=== PATIENT | male | born 1970 | race Caucasian/White ===

== ENCOUNTER 2018-06-24 11:01 | Emergency (ER) | payer BC ==
[~2018-06-24] VITALS: Ht 185.4 cm; Wt 113.4 kg
[2018-06-24] MEDS ORDERED: PANTOPRAZOLE 40 MG/10 ML VIAL IV ONE ×2 (11:33→11:45)
[2018-06-24] MEDS ORDERED: SODIUM CHLORIDE 0.9% 1,000 ML IV ONE (11:45)
[2018-06-24 11:51] LABS: Basophils # (auto) 0 uL; Basophils % (auto) 0.6 % (0.0-2.0); Eosinophils # (auto) 0.1 uL; Eosinophils % (auto) 1.9 % (0.0-7.0); Hematocrit 47.6 % (41.0-53.0); Lymphocytes # (auto) 0.9 uL; Lymphocytes % (auto) 16.5 % (10.0-50.0); Mean Corpuscular Hgb Conc. 33.7 g/dL (32.0-36.0); Monocytes # (auto) 0.5 uL; Monocytes % (auto) 8.3 % (0.0-12.0); Neutrophils % (auto) 72.7 % (37.0-80.0); Nucleated Red Blood Cells % 0.1 %; Platelet Count (auto) 195 10^3/uL (140-450); Red Blood Cells 5.17 10^6/uL (4.5-5.90); Red Cell Distribution Width 13.1 % (11.8-14.3); White Blood Cell 5.4 10^3/uL (4.4-10.8)
[2018-06-24] MEDS ORDERED: MORPHINE SULF INJ 2 MG/ML SYRINGE 1ML IV ONE (12:00)
[2018-06-24] MEDS ORDERED: ONDANSETRON HCL 4 MG/2 ML VIAL IV ONE (12:00)
[2018-06-24 12:07] LABS: Albumin 4.1 g/dL (3.4-5.0); BUN/Creatinine Ratio 8.8; Calcium 10.3 mg/dL (8.5-10.1); Potassium 3.7 mmol/L (3.5-5.1)
[2018-06-24 12:10] LABS: Bilirubin, Total 0.5 mg/dL (0.2-1.0); Total Protein 7.7 g/dL (6.4-8.2)
[2018-06-24] MEDS ORDERED: KETOROLAC TROMETH 30 MG/ML 1ML VIAL IV ONE (13:15)
[2018-06-24] MEDS ORDERED: TAMSULOSIN HYDROCHLORIDE 0.4 MG CAP PO ONE (13:15)
[2018-06-24 13:30] VITALS: BP 111/67
[2018-06-24 13:33] LABS: Urine WBC None Seen /hpf (0 - 3)
[2018-06-24 13:44] LABS: Urine Bacteria NONE SEEN /hpf (None Seen); Urine Blood 2+ /uL (Negative); Urine Mucus FEW (None Seen); Urine Specific Gravity 1.015 (1.001-1.035)
[2018-06-24] MEDS ORDERED: HYDROcodone-ACET 10/325MG TAB PO ONE (15:00)
== END 2018-06-24 14:52 | disposition home or self-care (01) ==
LOC: ER 11:05
DX: N20.0 Calculus of kidney (principal); F17.210 Nicotine dependence, cigarettes, uncomplicated
CPT/HCPCS: 36415; 74176; 80053; 81001; 82150; 83690; 85025; 94761; 96374; 96375; 99284; C9113; J1885; J2270; J2405

== ENCOUNTER 2020-06-09 10:05 | Emergency (ER) | payer BC ==
[~2020-06-09] VITALS: Ht 185.4 cm; Wt 108.4 kg
[2020-06-09 10:06] VITALS: BP 132/88
== END 2020-06-09 11:04 | disposition home or self-care (01) ==
LOC: ER 10:05
DX: M23.92 Unspecified internal derangement of left knee (principal); F17.210 Nicotine dependence, cigarettes, uncomplicated
CPT/HCPCS: 73562

== ENCOUNTER 2021-01-24 05:27 | Emergency (ER) | payer BC ==
[~2021-01-24] VITALS: Ht 185.4 cm; Wt 122.5 kg
[2021-01-24 07:04] VITALS: BP 111/79
[2021-01-24] MEDS ORDERED: KETOROLAC TROMETH 60MG/2ML VIAL IM ONE (07:15)
== END 2021-01-24 07:36 | disposition home or self-care (01) ==
LOC: ER 05:27
DX: S63.502A Unspecified sprain of left wrist, initial encounter (principal); F17.210 Nicotine dependence, cigarettes, uncomplicated; W54.0XXA Bitten by dog, initial encounter; Y93.89 Activity, other specified; Y92.89 Other specified places as the place of occurrence of the external cause; Y99.8 Other external cause status
CPT/HCPCS: 73110; 96372; 99283; J1885

== ENCOUNTER 2023-04-29 08:16 | Emergency (ER) | payer BC ==
[~2023-04-29] VITALS: Ht 185.4 cm; Wt 119.8 kg
[2023-04-29 08:21] VITALS: BP 109/85
[2023-04-29 09:22] LABS: Urine Bacteria NONE SEEN /hpf (None Seen); Urine Blood Negative /uL (Negative); Urine Clarity Clear (Clear); Urine Color Yellow (Yellow); Urine Hyaline Cast FEW /lpf (0 - 2); Urine Mucus MODERATE (None Seen); Urine Protein, UAD TRACE (Negative); Urine Specific Gravity 1.034 (1.001-1.035); Urine Urobilinogen Normal (Negative); Urine WBC 1 /hpf (0 - 3)
[2023-04-29] MEDS: ONDANSETRON ODT 4 MG TAB PO ONE (09:23)
[2023-04-29 09:25] VITALS: PULSE 92; RESP 16; O2SAT 95; O2SAT 96
[2023-04-29 09:26] LABS: Alanine Aminotransferase 25 U/L (7-40); Albumin 4.2 g/dL (3.2-4.8); Alkaline Phosphatase 70 U/L (46-116); Anion Gap 5 (5-15); Aspartate Aminotransferase 18 U/L (13-40); BUN/Creatinine Ratio 9.2 (10.0-20.0); Bilirubin, Total 0.8 mg/dL (0.2-1.0); Blood Urea Nitrogen 10 mg/dL (9-23); Calcium 8.5 mg/dL (8.7-10.4); Carbon Dioxide 23 mmol/L (20-30); Chloride 109 mmol/L (98-107); Glucose 103 mg/dL (74-106); Potassium 4.2 mmol/L (3.5-5.1); Sodium 137 mmol/L (136-145)
[2023-04-29 10:44] LABS: Basophils # (auto) 0 10 ^3/uL (0-0.2); Basophils % (auto) 0.5 % (0.0-2.0); Eosinophils # (auto) 0.1 10 ^3/uL (0-0.8); Eosinophils % (auto) 1.4 % (0.0-7.0); Hematocrit 47.9 % (41.0-53.0); Lymphocytes # (auto) 1.1 10 ^3/uL (0.4-5.4); Lymphocytes % (auto) 28.5 % (10.0-50.0); Mean Corpuscular Hemoglobin 30.6 pg (28.0-32.0); Mean Corpuscular Hgb Conc. 33.4 g/dL (32.0-36.0); Mean Corpuscular Volume 91.8 fL (80.0-100.0); Monocytes # (auto) 0.3 10 ^3/uL (0-1.3); Monocytes % (auto) 8.2 % (0.0-12.0); Neutrophils # (auto) 2.3 10 ^3/uL (1.6-8.6); Neutrophils % (auto) 61.4 % (37.0-80.0); Nucleated Red Blood Cells % 0.3 %; Red Blood Cells 5.22 10^6/uL (4.5-5.90); Red Cell Distribution Width 13.1 % (11.8-14.3); White Blood Cell 3.8 10^3/uL (4.4-10.8)
[2023-04-29] MEDS ORDERED: ZOFR4T PO (11:21)
== END 2023-04-29 11:42 | disposition home or self-care (01) ==
LOC: ER 08:16
DX: K52.9 Noninfective gastroenteritis and colitis, unspecified (principal); F17.210 Nicotine dependence, cigarettes, uncomplicated; Z98.890 Other specified postprocedural states
CPT/HCPCS: 36415; 74176; 80053; 81001; 85025; 99284; Q0162

== ENCOUNTER 2023-10-02 19:53 | Emergency (ER) | payer BC ==
[~2023-10-02] VITALS: Ht 185.4 cm; Wt 118.6 kg
[~2023-10-02 19:53] MED LIST: ZOFR4T PO
[2023-10-02 20:12] VITALS: BP 108/82; RESP 18; O2SAT 92
[2023-10-02 20:13] VITALS: PULSE 103
[2023-10-02] MEDS ORDERED: TETANUS-DIPTH-ACEL PERTUSSIS 0.5ML SYR Tdap IM ONE (20:45)
[2023-10-02] MEDS ORDERED: KETOROLAC TROMETH 60MG/2ML VIAL IM ONE (20:45)
[2023-10-02] MEDS ORDERED: HYDROcodone-ACET 10/325MG TAB PO ONE (20:45)
[2023-10-02 20:54] LABS: Basophils # (auto) 0 10 ^3/uL (0-0.2); Basophils % (auto) 0.6 % (0.0-2.0); Eosinophils # (auto) 0.1 10 ^3/uL (0-0.8); Eosinophils % (auto) 2.2 % (0.0-7.0); Hematocrit 43.1 % (41.0-53.0); Hemoglobin 14.7 g/dL (13.5-17.5); Lymphocytes # (auto) 1.4 10 ^3/uL (0.4-5.4); Lymphocytes % (auto) 20.7 % (10.0-50.0); Mean Corpuscular Hemoglobin 31.5 pg (28.0-32.0); Mean Corpuscular Hgb Conc. 34.1 g/dL (32.0-36.0); Mean Corpuscular Volume 92.4 fL (80.0-100.0); Monocytes # (auto) 0.5 10 ^3/uL (0-1.3); Monocytes % (auto) 7.4 % (0.0-12.0); Neutrophils # (auto) 4.5 10 ^3/uL (1.6-8.6); Neutrophils % (auto) 69.1 % (37.0-80.0); Nucleated Red Blood Cells % 0.1 %; Red Blood Cells 4.67 10^6/uL (4.5-5.90); Red Cell Distribution Width 13.2 % (11.8-14.3); White Blood Cell 6.5 10^3/uL (4.4-10.8)
[2023-10-02 21:23] LABS: Alanine Aminotransferase 24 U/L (7-40); Albumin 4.2 g/dL (3.2-4.8); Alkaline Phosphatase 69 U/L (46-116); Anion Gap 6 (5-15); Aspartate Aminotransferase 13 U/L (13-40); Bilirubin, Total 0.8 mg/dL (0.2-1.0); Blood Urea Nitrogen 15 mg/dL (9-23); Calcium 9.4 mg/dL (8.7-10.4); Carbon Dioxide 24 mmol/L (20-30); Chloride 109 mmol/L (98-107); Glucose 102 mg/dL (74-106); Sodium 139 mmol/L (136-145); Total Protein 6.6 g/dL (5.7-8.2)
[2023-10-02] MEDS ORDERED: NEOMYCIN-BACITRACIN-POLYM UNITDOSE PKG TOP OINT TOP ONE (21:45)
[2023-10-02] MEDS ORDERED: HYDR-4902 PO (22:38)
[2023-10-02] MEDS ORDERED: AUG875T PO (22:38)
[2023-10-02] MEDS ORDERED: IBUP-1455 PO (22:38)
[2023-10-02] MEDS ORDERED: BACIOIN15 TOP (22:38)
[2023-10-02] MEDS ORDERED: AMOXICILLIN/CLAVUL 875 MG TAB PO ONE (22:45)
== END 2023-10-02 22:36 | disposition home or self-care (01) ==
LOC: ER 19:53
DX: S00.83XA Contusion of other part of head, initial encounter (principal); S20.211A Contusion of right front wall of thorax, initial encounter; R60.0 Localized edema; F17.210 Nicotine dependence, cigarettes, uncomplicated; W54.0XXA Bitten by dog, initial encounter; Y93.89 Activity, other specified; Y92.89 Other specified places as the place of occurrence of the external cause; Y99.8 Other external cause status
CPT/HCPCS: 36415; 70450; 71101; 73130; 80053; 84484; 85025; 93005

== ENCOUNTER 2023-11-03 11:00 | Emergency (ER) | payer BC ==
[~2023-11-03] VITALS: Ht 185.4 cm; Wt 125.0 kg
[~2023-11-03 11:00] MED LIST changes: +AUG875T PO; +BACIOIN15 TOP; +HYDR-4902 PO; +IBUP-1455 PO
[2023-11-03 11:40] LABS: Basophils # (auto) 0 10 ^3/uL (0-0.2); Eosinophils # (auto) 0 10 ^3/uL (0-0.8); Eosinophils % (auto) 0.1 % (0.0-7.0); Hematocrit 44.4 % (41.0-53.0); Hemoglobin 15.2 g/dL (13.5-17.5); Lymphocytes # (auto) 0.9 10 ^3/uL (0.4-5.4); Lymphocytes % (auto) 15.3 % (10.0-50.0); Mean Corpuscular Hemoglobin 31.7 pg (28.0-32.0); Mean Corpuscular Hgb Conc. 34.1 g/dL (32.0-36.0); Mean Corpuscular Volume 92.8 fL (80.0-100.0); Monocytes # (auto) 0.4 10 ^3/uL (0-1.3); Monocytes % (auto) 6.9 % (0.0-12.0); Neutrophils # (auto) 4.7 10 ^3/uL (1.6-8.6); Neutrophils % (auto) 77.7 % (37.0-80.0); Platelet Count (auto) 175 10^3/uL (140-450); Red Blood Cells 4.79 10^6/uL (4.5-5.90); White Blood Cell 6.1 10^3/uL (4.4-10.8)
[2023-11-03] MEDS: ASPirin 81 mg TAB PO ONE (11:41)
[2023-11-03 11:46] VITALS: TEMP 98.7
[2023-11-03 11:56] LABS: Alanine Aminotransferase 28 U/L (7-40); Albumin 4.2 g/dL (3.2-4.8); Alkaline Phosphatase 71 U/L (46-116); Anion Gap 6 (5-15); Aspartate Aminotransferase 24 U/L (13-40); BUN/Creatinine Ratio 6.7 (10.0-20.0); Blood Urea Nitrogen 7 mg/dL (9-23); Calcium 9.2 mg/dL (8.7-10.4); Carbon Dioxide 26 mmol/L (20-30); Chloride 104 mmol/L (98-107); Glucose 114 mg/dL (74-106); Magnesium 1.8 mg/dL (1.6-2.6); Potassium 3.8 mmol/L (3.5-5.1); Sodium 136 mmol/L (136-145)
[2023-11-03 11:57] LABS: Bilirubin, Total 0.6 mg/dL (0.2-1.0); Total Protein 6.9 g/dL (5.7-8.2)
[2023-11-03 12:00] VITALS: PULSE 117; RESP 18; O2SAT 95
[2023-11-03] MEDS: SODIUM CHLORIDE 0.9% 1,000 ML IV ONE (12:02)
[2023-11-03] MEDS: MORPHINE SULFATE 4 MG/ML SYR/VIAL IV ONE (12:43)
[2023-11-03] MEDS: LORazepam 2MG/ML-1ML VIAL IV ONE (12:43)
[2023-11-03] MEDS: ONDANSETRON HCL 4 MG/2 ML VIAL IV ONE (12:44)
[2023-11-03] MEDS: NITROGLYCERIN 50MG/250ML 250 ML IV ONE (12:50)
[2023-11-03] MEDS: HEPARIN 1,000 UNITS/ml 1ML VIAL IV ONE (12:50)
[2023-11-03 12:54] LABS: Partial Thromboplastin Time 28.2 SEC (24.5-34.5); Prothrombin Time 10.6 sec (9.3-11.8)
[2023-11-03] MEDS: HEPARIN DRIP/D5W 100UNITS/ML 250 ML IV SCH (14:09)
[2023-11-03] MEDS ORDERED: MORPHINE SULFATE INJ 2 MG/ml SYRG IV PRN ×2 (14:15→15:15)
[2023-11-03] MEDS ORDERED: ONDANSETRON HCL 4 MG/2 ML VIAL IV PRN (14:15)
[2023-11-03] MEDS ORDERED: hydrALAZINE HCL 20 MG/ML VL IV PRN (14:15)
[2023-11-03] MEDS ORDERED: DOCUSATE SOD 100 MG CAP PO PRN (14:15)
[2023-11-03] MEDS ORDERED: HYDROcodone-ACET 5/325MG TAB PO PRN (14:15)
[2023-11-03] MEDS ORDERED: ACETAMINOPHEN 325 MG TAB PO PRN (14:15)
[2023-11-03 14:40] LABS: Triglycerides 72 mg/dL (< 150)
[2023-11-03 14:41] LABS: LDL Cholesterol 88 mg/dL (< 100)
[2023-11-03 14:42] LABS: Cholesterol 143 mg/dL (< 200); HDL Cholesterol 39 mg/dL (40-59)
[2023-11-03] MEDS ORDERED: NITROGLYCERIN 0.4 MG SL TAB SL PRN (15:15)
[2023-11-03 15:17] LABS: Amphetamine Screen, Urine Pos (NEGATIVE); Barbiturate Scree,Urine Neg (NEGATIVE); Benzodiazephine Screen, Urine Neg (NEGATIVE)
[2023-11-03 15:18] LABS: Cocaine Screen, Urine Neg (NEGATIVE); Opiate Scree,Urine Neg (NEGATIVE); Phencyclidine Screen, Urine Neg (NEGATIVE)
[2023-11-03 15:19] LABS: Cannabinoid Screen, Urine Pos (NEGATIVE)
[2023-11-03] MEDS: SODIUM CHLORIDE 0.9% 1,000 ML IV SCH (17:21)
[2023-11-03] MEDS ORDERED: LORazepam 2MG/ML-1ML VIAL IV PRN (17:30)
[2023-11-03 18:00] VITALS: BP 107/64; PULSE 98; RESP 12; O2SAT 95
[2023-11-03] MEDS ORDERED: ATORVASTATIN 20 MG TAB PO SCH (22:00)
[2023-11-04] MEDS ORDERED: FAMOTIDINE (10MG/ML) 2ML VL IV SCH (10:00)
== END 2023-11-03 19:39 | disposition left against medical advice (07) ==
LOC: ER 11:01 → DOU IN ICU 15:05 → UNDOADMIN 15:05 → ER 15:05 → OVERFLOW 20:31 → DOU IN ICU 20:31
DX: I21.4 Non-ST elevation (NSTEMI) myocardial infarction (principal); F15.10 Other stimulant abuse, uncomplicated; F17.210 Nicotine dependence, cigarettes, uncomplicated; Z79.899 Other long term (current) drug therapy
CPT/HCPCS: 36415; 71045; 80053; 80061; 80307; 82962; 83036; 83735; 83880; 84443; 84484; 85025; 85610; 85730; 93005; 93306; 96361; 96374; 96375; 99291; J1644; J2060; J2270; J2405; J7030; 96365

== ENCOUNTER 2023-11-09 09:09 | Inpatient (IN) | payer BC ==
[~2023-11-09] VITALS: Ht 185.4 cm; Wt 109.1 kg
[2023-11-09 09:43] LABS: Basophils # (auto) 0 10 ^3/uL (0-0.2); Eosinophils # (auto) 0.1 10 ^3/uL (0-0.8); Eosinophils % (auto) 2.6 % (0.0-7.0); Hematocrit 43.9 % (41.0-53.0); Hemoglobin 14.7 g/dL (13.5-17.5); Lymphocytes # (auto) 1.1 10 ^3/uL (0.4-5.4); Lymphocytes % (auto) 28.9 % (10.0-50.0); Mean Corpuscular Hemoglobin 31.2 pg (28.0-32.0); Mean Corpuscular Hgb Conc. 33.6 g/dL (32.0-36.0); Mean Corpuscular Volume 92.9 fL (80.0-100.0); Monocytes # (auto) 0.4 10 ^3/uL (0-1.3); Monocytes % (auto) 9.4 % (0.0-12.0); Neutrophils # (auto) 2.3 10 ^3/uL (1.6-8.6); Neutrophils % (auto) 58.1 % (37.0-80.0); Nucleated Red Blood Cells % 0.1 %; Platelet Count (auto) 246 10^3/uL (140-450); Red Blood Cells 4.72 10^6/uL (4.5-5.90); Red Cell Distribution Width 13.3 % (11.8-14.3); White Blood Cell 3.9 10^3/uL (4.4-10.8)
[2023-11-09] MEDS: ASPirin 81 mg TAB PO ONE (09:48)
[2023-11-09 09:49] VITALS: PULSE 98; RESP 18; O2SAT 95
[2023-11-09 10:00] LABS: Urine Bacteria None Seen /hpf (None Seen)
[2023-11-09 10:12] LABS: Alanine Aminotransferase 35 U/L (7-40); Alkaline Phosphatase 75 U/L (46-116); Anion Gap 2 (5-15); Aspartate Aminotransferase 34 U/L (13-40); BUN/Creatinine Ratio 7.1 (10.0-20.0); Bilirubin, Total 0.7 mg/dL (0.2-1.0); Blood Urea Nitrogen 8 mg/dL (9-23); Calcium 9.7 mg/dL (8.7-10.4); Carbon Dioxide 30 mmol/L (20-30); Chloride 108 mmol/L (98-107); Glucose 113 mg/dL (74-106); Sodium 140 mmol/L (136-145); Total Protein 6.5 g/dL (5.7-8.2)
[2023-11-09 10:15] LABS: INR 0.99 (0.9-1.15); Partial Thromboplastin Time 27.3 SEC (24.5-34.5); Prothrombin Time 10.5 sec (9.3-11.8)
[2023-11-09 10:22] LABS: Urine Blood Negative /uL (Negative); Urine Clarity Clear (Clear); Urine Color Yellow (Yellow); Urine Hyaline Cast FEW /lpf (0 - 2); Urine Mucus FEW (None Seen); Urine Protein, UAD TRACE (Negative); Urine Specific Gravity 1.022 (1.001-1.035); Urine Urobilinogen Normal (Negative); Urine WBC 1 /hpf (0 - 3)
[2023-11-09 10:24] LABS: Amphetamine Screen, Urine Pos (NEGATIVE)
[2023-11-09 10:25] LABS: Barbiturate Scree,Urine Neg (NEGATIVE); Benzodiazephine Screen, Urine Neg (NEGATIVE); Cannabinoid Screen, Urine Pos (NEGATIVE); Cocaine Screen, Urine Neg (NEGATIVE); Opiate Scree,Urine Neg (NEGATIVE); Phencyclidine Screen, Urine Neg (NEGATIVE)
[2023-11-09] MEDS ORDERED: ONDANSETRON HCL 4 MG/2 ML VIAL IV PRN (13:00)
[2023-11-09] MEDS ORDERED: ACETAMINOPHEN 325 MG TAB PO PRN (13:00)
[2023-11-09] MEDS ORDERED: NITROGLYCERIN 0.4 MG SL TAB SL PRN ×2 (13:00)
[2023-11-09] MEDS: LORazepam 0.5 MG TAB PO PRN (13:27)
[2023-11-09 15:52] LABS: Triglycerides 75 mg/dL (< 150)
[2023-11-09 15:53] LABS: LDL Cholesterol 72 mg/dL (< 100)
[2023-11-09 15:54] LABS: Cholesterol 133 mg/dL (< 200); HDL Cholesterol 44 mg/dL (40-59)
[2023-11-09 19:29] VITALS: PULSE 89; RESP 20; O2SAT 100
[2023-11-09 21:15] VITALS: BP 90/56; PULSE 80; RESP 16; TEMP 98.7; O2SAT 98
[2023-11-09 21:56] VITALS: PULSE 78; RESP 18; O2SAT 93
[2023-11-09] MEDS: ATORVASTATIN 20 MG TAB PO SCH (21:57)
[2023-11-09 22:00] VITALS: BP 96/55; PULSE 81; RESP 16; TEMP 98.6; O2SAT 98
[2023-11-09] MEDS ORDERED: METOPROLOL TARTRATE 25 MG TAB PO SCH (22:00)
[2023-11-10] VITALS (8 sets, daily range): BP systolic 90–147; BP diastolic 59–113; PULSE 81–92; RESP 16–17; TEMP 97.5–98.7; O2SAT 93–98
[2023-11-10 07:52] LABS: Basophils # (auto) 0 10 ^3/uL (0-0.2); Basophils % (auto) 1.2 % (0.0-2.0); Eosinophils # (auto) 0.1 10 ^3/uL (0-0.8); Eosinophils % (auto) 2.7 % (0.0-7.0); Hemoglobin 14.1 g/dL (13.5-17.5); Lymphocytes # (auto) 1.6 10 ^3/uL (0.4-5.4); Lymphocytes % (auto) 38.1 % (10.0-50.0); Mean Corpuscular Hgb Conc. 33.6 g/dL (32.0-36.0); Mean Corpuscular Volume 92.3 fL (80.0-100.0); Monocytes # (auto) 0.4 10 ^3/uL (0-1.3); Monocytes % (auto) 10.1 % (0.0-12.0); Neutrophils % (auto) 47.9 % (37.0-80.0); Nucleated Red Blood Cells % 0.1 %; Platelet Count (auto) 236 10^3/uL (140-450); Red Blood Cells 4.55 10^6/uL (4.5-5.90); Red Cell Distribution Width 13.4 % (11.8-14.3); White Blood Cell 4.2 10^3/uL (4.4-10.8)
[2023-11-10 08:02] LABS: Alanine Aminotransferase 33 U/L (7-40); Albumin 3.7 g/dL (3.2-4.8); Alkaline Phosphatase 67 U/L (46-116); Anion Gap 4 (5-15); Aspartate Aminotransferase 23 U/L (13-40); Bilirubin, Total 0.7 mg/dL (0.2-1.0); Blood Urea Nitrogen 11 mg/dL (9-23); Calcium 9.3 mg/dL (8.7-10.4); Carbon Dioxide 26 mmol/L (20-30); Chloride 109 mmol/L (98-107); Glucose 100 mg/dL (74-106); Potassium 4.1 mmol/L (3.5-5.1); Sodium 139 mmol/L (136-145); Total Protein 6.1 g/dL (5.7-8.2)
[2023-11-10] MEDS: ASPirin 81 mg TAB PO SCH (08:33)
[2023-11-10] MEDS: DOCUSATE SOD 100 MG CAP PO SCH (08:40)
[2023-11-10] MEDS: LACTATED RINGER'S 1,000 ML IV SCH (11:48)
== END 2023-11-10 18:20 | disposition home or self-care (01) | DRG 282 ==
LOC: ER 09:09 → TELE 12:54 → TELE-WESTW 21:15
PROVIDERS: ADMIT Internal Medicine; ATTEND Internal Medicine
DX: I20.1 Angina pectoris with documented spasm (principal); I21.A1 Myocardial infarction type 2; E66.9 Obesity, unspecified; F41.9 Anxiety disorder, unspecified; F15.10 Other stimulant abuse, uncomplicated; T43.625A Adverse effect of amphetamines, initial encounter; F17.210 Nicotine dependence, cigarettes, uncomplicated; Z96.652 Presence of left artificial knee joint; Z87.442 Personal history of urinary calculi; Z79.899 Other long term (current) drug therapy; Z68.31 Body mass index [BMI] 31.0-31.9, adult; Y92.89 Other specified places as the place of occurrence of the external cause
CPT/HCPCS: 36415; 71045; 80053; 80061; 80307; 81001; 83735; 84443; 84484; 85025; 85610; 85730; 93005; 99291; G0378

== ENCOUNTER 2024-12-18 05:45 | Emergency (ER) | payer BC ==
[~2024-12-18] VITALS: Ht 182.9 cm; Wt 100.0 kg
[~2024-12-18 05:45] MED LIST changes: -AUG875T PO; -BACIOIN15 TOP; -HYDR-4902 PO; -ZOFR4T PO
--- NOTE | 2024-12-18 06:35 | ED.PDOC ---
Musculoskeletal HPI Comments 54-year-old male with a history of polysubstance use presented to the ER with a chief complaint of right hand pain dog bite. Patient has multiple dogs with a mix breed and reports that 1 of his dog was attacking the other, he got in between and the dog bit his hand. Patient reports numbness and tingling over the right hand, severe pain denies fever, chills, nausea, vomiting at this time. He says that his dogs were vaccinated, does not remember when his last tetanus shot was. Patient seen and examined in [facility]. Right hand dorsum has a wound 3 x 1 cm, erythematous without purulent drainage. Chief Complaint: Animal Bite Time Seen by MD: 06:17 Primary Care Provider: NONE Reviewed Notes: Nurses Notes Allergies: Coded Allergies: NO KNOWN ALLERGIES (Unverified , 06/24/18) Home Meds Active Scripts Ibuprofen Micronized (Ibuprofen) 800 Mg Tab, 800 MG PO Q8HP PRN, #20 TAB Prov:TIKI MENDEZ Kiara PAC 10/02/23 Information Source: Patient Mode of Arrival: Ambulatory Past Medical History PAST MEDICAL HISTORY: Denies Surgical History: Hernia Repair Family History Family History: Family hx of Cancer Social History Smoker: Cigarettes, Less Than 1 Pack/Day Alcohol: Denies ETOH Use Drugs: Marijuana, Methamphetamine Lives In: Home Constitutional: denies: chills, diaphoresis, fatigue, fever, malaise, sweats, weakness, others EENTM: denies: blurred vision, double vision, ear bleeding, ear discharge, ear drainage, ear pain, ear ringing, eye pain, eye redness, hearing loss, mouth pain, mouth swelling, nasal discharge, nose bleeding, nose congestion, nose pain, photophobia, tearing, throat pain, throat swelling, voice changes, others Respiratory: denies: cough, hemoptysis, orthopnea, SOB at rest, shortness of breath, SOB with excertion, stridor, wheezing, others Cardiovascular: denies: chest pain, dizzy spells, diaphoresis, Dyspnea on exertion, edema, irregular heart beat, left arm pain, lightheadedness, palpitations, PND, syncope, others Gastrointestinal: denies: abdomen distended, abdominal pain, blood streaked bowels, constipated, diarrhea, dysphagia, difficulty swallowing, hematemesis, melena, nausea, poor appetite, poor fluid intake, rectal bleeding, rectal pain, vomiting, others Genitourinary: denies: burning, dysuria, flank pain, frequency, hematuria, incontinence, penile discharge, penile sore, pain, testicle pain, testicle swelling, urgency, others Musculoskeletal: denies: back pain, gout, joint pain, joint swelling, muscle pain, muscle stiffness, neck pain, others Integumetry: reports: laceration, wounds Allergic/Immunocompromised: denies: Difficulty Healing, Frequent Infections, Hives, Itching, others Hematologic/Lymphatic: denies: anemia, blood clots, easy bleeding, easy bruising, swollen glands, others Endocrine: denies: excessive hunger, excessive sweating, excessive thirst, excessive urination, flushing, intolerance to cold, intolerance to heat, unexplained weight gain, unexplained weight loss, others Psychiatric: denies: anxiety, bipolar disorder, depression, hopeless, panic disorder, schizophrenia, sleepless, suicidal, others Physical Exam General Appearance: No Apparent Distress, Normal HEENT: Normal ENT Inspection, Pharynx Normal, TMs Normal Neck: Full Range of Motion, Non-Tender, Normal, Normal Inspection Respiratory: Chest Non-Tender, Lungs Clear, No Accessory Muscle Use, No Respiratory Distress, Normal Breath Sounds Cardiovascular: No Edema, No JVD, No Murmur, No Gallop, Normal Peripheral Pulses, Regular Rate/Rhythm Breast Exam: Deferred Gastrointestinal: No Organomegaly, Non Tender, No Pulsatile Mass, Normal Bowel Sounds, Soft Genitalia: Deferred Pelvic: Deferred Rectal: Deferred Extremities: No calf tenderness, Normal capillary refill, Normal inspection, Normal range of motion, Tender, Other (Right hand dorsum has a wound 3 x 1 cm, erythematous without purulent drainage.) Musculoskeletal : Apperance: Normal Neurologic: Alert, 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 Was a procedure done?: No Differential Diagnosis EXT Differential Diagnosis: Cellulitis, Fracture X-Ray, Labs, Meds, VS Vital Signs Date Time Temp Pulse Resp B/P (MAP) Pulse Ox O2 Delivery O2 Flow Rate FiO2 12/18/24 05:47 98.0 107 18 132/75 96 98.0 X-Ray, Labs, Meds, VS Comment Right hand x-ray Tdap vaccine, Augmentin 875 b.i.d. for 5 days, IM morphine, cleaning of the wound. Images Reviewed?: Images reviewed and evaluated by me Time of 1ST Reevaluation: 07:00 Reevaluation 1ST: Improved Consultation: PCP Patient Education/Counseling: Diagnosis, Treatment, Prognosis, Need For Follow Up Family Education/Counseling: Diagnosis, Treatment, Prognosis, Need For Follow Up Departure 1 Departure Time of Disposition: 09:00 Impression: Primary Impression: Dog bite Disposition: 01 HOME / SELF CARE / HOMELESS Condition: Stable Additional Instructions: Tablet Augmentin 875 b.i.d. for 5 days Bacitracin ointment b.i.d. p.r.n. Do not close the wound, enema bites originally left open to heal to prevent tripping bacteria inside Please go to the ER or call your doctor if you noticed redness swelling warmth or pus from the bite, fever or chills, numbness, trouble moving fingers or joints Do not try to catch or handle the stray cat Critical Care Note Critical Care Time?: No Stability Stability form required: VASU Peñaloza RESIDENT Dec 18, 2024 06:35
[2024-12-18] MEDS ORDERED: BAC09TP TOP (07:16)
[2024-12-18] MEDS ORDERED: AUG875T PO (07:16)
[2024-12-18] MEDS: TETANUS-DIPTH-ACEL PERTUSSIS 0.5ML SYR Tdap IM ONE (07:34)
[2024-12-18] MEDS: MORPHINE SULFATE INJ 2 MG/ml SYRG IM ONE (07:35)
--- NOTE | 2024-12-18 07:50 | DVH ---
XY R HAND 2 VIEW XRAY, INDICATION: bite wound, r/o fracture TECHNICAL DATA: Frontal, oblique and lateral views were obtained of the right hand. COMPARISON: XY L HAND 3V XRAY on DOS: 10/02/23, L WRIST COMPLETE XRAY on DOS: 01/24/21 FINDINGS: No fracture is identified. Joint spaces are maintained. Alignment is anatomic. Soft tissues defect is seen laterally. IMPRESSION: No acute fracture or dislocation of the right hand.
[2024-12-18] MEDS: BACITRACIN TOP OINT 1 UD PKG TOP ONE (07:56)
[2024-12-18] MEDS: AMOXICILLIN/CLAVUL 875 MG TAB PO ONE (07:56)
[2024-12-18 08:06] VITALS: BP 122/86; PULSE 94; RESP 17; TEMP 98.7; O2SAT 95
[2024-12-18] MEDS ORDERED: LIDOCAINE 1% HCL (LOCAL ANESTH.) INJ 20ML MDV ID ONE (08:15)
== END 2024-12-18 08:31 | disposition home or self-care (01) ==
LOC: ER 05:45
DX: S61.451A Open bite of right hand, initial encounter (principal); F17.210 Nicotine dependence, cigarettes, uncomplicated; Z98.890 Other specified postprocedural states; W54.0XXA Bitten by dog, initial encounter; Y93.89 Activity, other specified; Y92.89 Other specified places as the place of occurrence of the external cause; Y99.8 Other external cause status
CPT/HCPCS: 73120; 90471; 90715; 96372; 99284; J2270